=== PATIENT | male | born 1950 | race Hispanic/Latino ===

== ENCOUNTER 2020-03-22 12:38 | Inpatient (IN) | payer MEDICARE, OTHER ==
[~2020-03-22 12:38] MED LIST: Dexamethasone 20 MG/5 ML VIAL ONE; EPHEDRINE 25 MG/5 ML SYRINGE ONE; Glycopyrrolate 0.2 MG/ML 5 ML SYRINGE ONE; Lidocaine 1% PF 5 ML VIAL ONE; Ondansetron PF 4 MG/2 ML Vial ONE; PHENYLEPHRINE-NS 100 MCG/ML 10 ML SYRINGE ONE; PROPOFOL 200 MG/20 ML VIAL ONE; Rocuronium Bromide 10 MG/ML (10ML VIAL) ONE; Succinylcholine Chloride 20 MG/ML 10 ml SYRINGE FS ONE; diphenhydrAMINE 50 MG/ML VIAL ONE
--- NOTE | 2020-03-22 13:16 | RAD ---
XR Chest 1 View Portable HISTORY: Preop evaluation. Intracranial hemorrhage COMPARISON: None FINDINGS: The heart size is normal. The lungs are well expanded without focal areas of consolidation, pneumothorax or pleural effusions. IMPRESSION: No radiographic evidence of acute cardiopulmonary process.
[2020-03-22 13:29] LABS: #Eosinphils 0.1 thou/uL (0.0-0.7); #Lymphocytes 1.3 thou/uL (1.20-3.40); #Monocytes 0.6 thou/uL (0.11-0.59); #Neutrophils 3.7 thou/uL (1.40-6.50); %Basophils 0.3 % (0.0-1.0); %Eosinophils 1.2 % (0.0-10.0); %Monocytes 10.5 % (0.0-10.0); Hemoglobin 14.7 g/dL (14.0-18.0); Mean Corpuscular Hemoglobin 33.8 pg (27.0-31.0); Mean Corpuscular Volume 99.5 fL (78.0-98.0); Mean Platelet Volume 6.4 fL (7.4-10.4); Platelet Count 280 thou/uL (130-400); RBC Distribution Width 13.1 % (11.5-14.5); Red Blood Cell (RBC) Count 4.35 mill/uL (4.70-6.10); White Blood Cell (WBC) Count 5.7 thou/uL (4.8-10.8)
[2020-03-22 13:35] LABS: PTT 32.8 sec (22.9-36.1)
[2020-03-22 13:49] LABS: ALT (SGPT) 19 U/L (8-55); AST (SGOT) 22 U/L (5-34); Alkaline Phosphatase 81 U/L (40-110); Anion Gap 13 mmol/L (10-20); BUN (Urea Nitrogen) 12 mg/dL (8.4-25.7); Bilirubin, Total 0.7 mg/dL (0.2-1.2); Calc. Creatinine Clearance 0 mL/min (70-130); Calcium 9.1 mg/dL (7.8-10.44); Carbon Dioxide 24 mmol/L (23-31); Chloride 99 mmol/L (98-107); Estimated GFR-MDRD Greater than 90; Globulin 2.9 g/dL (2.4-3.5); Glucose 81 mg/dL (83-110); Potassium 4.2 mmol/L (3.5-5.1); Protein, Total 6.9 g/dL (5.8-8.1); Sodium 132 mmol/L (136-145)
[2020-03-22] MEDS ORDERED: Ondansetron PF 4 MG/2 ML Vial IVP PRN (14:24)
[2020-03-22] MEDS ORDERED: Labetalol HCl 100 MG/20 ML VIAL SLOW IVP PRN (14:24)
[2020-03-22] MEDS ORDERED: Lidocaine 1% w/Epinephrine 1:100K 20 ML VIAL ONE (14:28)
[2020-03-22] MEDS ORDERED: Docusate 100 MG CAP PO PRN (14:28)
[2020-03-22] MEDS ORDERED: CEFAZOLIN 2 GM in Premix Bag 1 BAG IVPB SCH (14:30)
[2020-03-22] MEDS ORDERED: Fentanyl 250 MCG/5 ML VIAL ONE (14:32)
[2020-03-22] MEDS ORDERED: Acetaminophen 500 MG TAB PO PRN (14:33)
[2020-03-22] MEDS ORDERED: Fentanyl 100 MCG/2 ML VIAL SLOW IVP PRN ×2 (14:34→16:41)
[2020-03-22] MEDS ORDERED: Bacitracin Zinc Ointment 30 gm TUBE ONE (14:34)
[2020-03-22] MEDS ORDERED: Thrombin 5000 UNITS/5 ML VIAL ONE (14:34)
[2020-03-22] MEDS ORDERED: Sodium Chloride 0.9% 10 ML ONE (14:35)
[2020-03-22] MEDS ORDERED: Lidocaine 0.5%/Epinephrine 1:200,000 50 ml Vial ONE (14:36)
[2020-03-22] MEDS ORDERED: Sodium Chloride 0.9% 0 ML ONE (15:56)
[2020-03-22] MEDS ORDERED: SUGAMMADEX SODIUM 200 MG/2 ML VIAL ONE (16:06)
[2020-03-22] MEDS ORDERED: Ondansetron HCl/PF 4 MG/2 ML Vial IVP PRN (16:51)
--- NOTE | 2020-03-22 16:55 | PRG ---
DATE OF SERVICE: 03/22/2020 I personally examined the patient, reviewed imaging and documentation, and agreed with the notes of Jonathon Gamez PA-C. Briefly, Tereza Vicente is a 70-year-old gentleman, who has had some progressively worsening weakness on the left side of his body and was eventually brought to the emergency department today, where CT examination of the brain showed a subdural hematoma that looked mostly chronic. There were small acute portions anteriorly. The mass effect was significant as was as the shift. He was transferred from [facility] to [place] for definitive treatment. In the emergency department, he was able to speak in Serbian, and conducted his examination in that language. He did not speak Cymro. There was a left hemiparesis. Consent was obtained by Jonathon Gamez PA-C, through an interpretation program and we took the patient to the operating room from the emergency department. (15 min, F2F and coordinating care, OR room, etc) Job ID: [id number] MTDD
[2020-03-22] MEDS ORDERED: hydrALAZINE 20 MG/ML VIAL ONE (17:04)
[2020-03-22 17:44] VITALS: BMI 22.2
[2020-03-22] MEDS: Sodium Chloride 0.9% 1,000 ML IV SCH (20:08)
[2020-03-22] MEDS: CEFAZOLIN 2 GM in Premix Bag 1 BAG IVPB SCH (21:38)
[2020-03-22] MEDS: traMADol HCl 50 MG TAB PO PRN (21:53)
[2020-03-22] MEDS: hydrALAZINE 20 MG/ML VIAL SLOW IVP PRN (23:36)
--- NOTE | 2020-03-22 23:57 | OP ---
DATE OF PROCEDURE: 03/22/2020 BOTTLE WASHER: Jonathon Gamez PA-C PREOPERATIVE INDICATION: Prevent further neurological deterioration. PREOPERATIVE DIAGNOSES: Mostly chronic right-sided subdural hematoma with significant mass effect and midline shift and left hemiparesis. POSTOPERATIVE DIAGNOSES: Mostly chronic right-sided subdural hematoma with significant mass effect and midline shift and left hemiparesis. PROCEDURES PERFORMED: Mateusz hole evacuation of subdural hematoma and placement of subdural drain. PREOPERATIVE MEDICATIONS: Ancef 2 g IV. DRAIN NUMBER: One. DRAIN TYPE: 10-Romanian red rubber catheter in the subdural space. DESCRIPTION OF PROCEDURE: The patient was brought to the operating room. General endotracheal anesthesia was induced. The right shoulder was bumped and the head was placed in a donut-shaped headrest. Hair was removed from the right side of the scalp. We planned two mateusz holes, one little bit more lateral than normal in the frontal region and one in the parietal bone posteriorly, both of these off the midline. Under our planned incisions, we infused local anesthetic. The scalp was sterilely prepped and draped. We opened our two incisions with a 10-blade knife and controlled bleeding with bipolar cautery. We mobilized the periosteum and placed mastoid retractors. We used a high-speed drill and a perforating bit. We placed mateusz holes in the parietal and frontal bone. We waxed the edges of the mateusz holes. We coagulated the dura. We incised the dura starting posteriorly in a cruciate fashion and then anteriorly. Chronic subdural hematoma was evacuated under significant pressure. We irrigated until the irrigant ran clear. We brought a red rubber catheter into the field. With extra side holes cut into the catheter, we placed it in the subdural space. We tunneled it inferiorly through a separate stab incision and connected the distal end to a lumbar drain bag. We filled the subdural space as best we could with irrigation. We placed mateusz hole covers over the mateusz holes because the patient had very little hair and these would be obvious. We closed the scalp incisions in anatomical layers. We applied sterile dressings. This was a clean case, no contamination. Job ID: [id number]
--- NOTE | 2020-03-23 01:21 | CON ---
DATE OF CONSULTATION: 03/22/2020 CHIEF COMPLAINT: Left-sided weakness. HISTORY OF PRESENT ILLNESS: Mr. Yamileth Vicente is a 70-year-old gentleman, with a history of BPH. States that he fell out of a tree about one month ago running from a bull. He fell from about 4 to 5 feet, hitting his head. Recently today, he has some left-sided weakness, so he went to [facility] in [place]. Brain CT revealed a right 3 cm subdural hematoma with a 9 mm midline shift. He was then transferred to [facility] ED in [place] for further evaluation and treatment due to neurosurgery coverage. He states he drinks anywhere from 3 to 5 beers daily and denies any blood thinners. He denies any confusion, agitation, inappropriate behavior, headache, vision changes, or loss of consciousness. Physical exam revealed a 4/5 left upper and lower extremity weakness. REVIEW OF SYSTEMS: CONSTITUTIONAL: Denies fever or chills. ENT: Denies change in vision or hearing. CARDIAC: Denies chest pain, shortness of breath, or diaphoresis. PULMONARY: Denies shortness of breath, cough, or hemoptysis. GI: Denies abdominal pain, nausea, vomiting, diarrhea, change in stool formation or consistency. : Denies trouble with urination, frequency of urination, or bloody urine. SKIN: Denies skin rash, bruising, bleeding, or skin masses. MUSCULOSKELETAL: As per history of present illness. NEUROLOGIC: As per history of present illness. PSYCHOLOGIC: As per history of present illness. MEDICAL HISTORY: BPH. SOCIAL HISTORY: Drinks 3 to 5 alcohol drinks a day. Denies illicit drugs. Denies nicotine use. ALLERGIES: NO KNOWN DRUG ALLERGIES. CURRENT MEDICATION: Denies medications. FAMILY HISTORY: Father diagnosed with cancer. Mother diagnosed with embolism. SURGICAL HISTORY: Denies surgical history. HOSPITALIZATION: Denies hospitalizations. PHYSICAL EXAMINATION: VITAL SIGNS: 138/84, pulse 62, respirations 18, and temperature 98.6. HEENT: Pupils are equal. Extraocular movements are intact. NECK: Soft, supple. No masses are noted. Range of motion is intact and nonpainful. NEUROLOGICAL: Awake, alert, and oriented x3. Memory, attention, and fund of knowledge normal. Cranial nerves are grossly intact. GCS: Obeys commands, 6; oriented, 5; spontaneous eye opening, 4; total 15. Gait, focal weakness, abnormal gait. Motor: Deficits include 4/5 strength in left upper extremity and the left lower extremity. LABORATORY DATA: WBC 5.7 and platelets are 13.1. PT 13, INR 1.0, and PTT 32.8. Sodium 132. IMAGING: Brain CT shows a right 3 cm subdural hematoma with 9 mm midline shift. PLAN: Right mateusz holes to evacuate chronic subdural hematoma causing focal weakness and abnormal gait. INFORMED CONSENT: We discussed the indications, risks, benefits, alternatives, and expected results from surgery. The risks discussed included, but were not limited to, infection, bleeding, CSF leak, brain damage, significant loss of neurological function, seizure, stroke, dependency for normal care, cardiopulmonary complications of anesthesia or . Long-term complications were discussed. He understands the risks and is willing to proceed. Job ID: [id number] [facility]
[2020-03-23] MEDS: CEFAZOLIN 2 GM in Premix Bag 1 BAG IVPB SCH ×3 (05:46→21:03)
[2020-03-23] MEDS: Pantoprazole 40 MG VIAL IVP SCH (07:37)
--- NOTE | 2020-03-23 07:56 | PRG ---
DATE OF SERVICE: 03/23/2020 I stopped by the room of Mr. Yamileth Vicente this morning in the ICU. He is one day out from mateusz hole evacuation of subdural hematoma. Nursing reports good neurological function. There is still question as to the positivity or negativity of the COVID testing. Therefore, he is on strict isolation precautions currently. The maximum temperature recorded was 97.8 degrees Fahrenheit yesterday. The blood pressures have been between 100 to 120s. Neurological function assessed from outside the room. This morning CT scan shows marked improvement of the fluid in the subdural space. All the fluid there now is a combination of CSF and irrigation. There is a small bubble of air anteriorly. The brain is slowly re-expanding. We will allow Mr. Yamileth Vicente to sit up, stand up, and move around with assistance today. I will be helpful to know the true status of his COVID test so that we can arrange appropriate care in isolation. We will plan on removing the drain tomorrow. When he is in bed, it will be beneficial for him to be in the right lateral decubitus position to allow gravity to pull his brain toward the floor and encourage more subdural fluid to leave the cranial cavity through the drain into the collection bag. Job ID: [id number]
--- NOTE | 2020-03-23 09:07 | CT ---
PRELIMINARY REPORT/[facility]/EMERGENCY AFTER HOURS PROCEDURE: Receipt of this report by the clinical staff was confirmed with Jacqui Black RN by Evie Caraballo on Mar 23, 2020 03:55:00 CDT. Addendum electronically signed by Annabel Caraballo on March 23, 2020 3:54:45 AM CDT EXAM: CT BRAIN WO CON HISTORY: F/U [facility]; S/P MATEUSZ HOLE Prior CT brain done at another facility, exam sent, pt ID for prior exam [id number] COMPARISON: None FINDINGS: Dumont hole at the right frontal calvarium. There is a second bur hole with ventriculostomy catheter at the right superior parietal calvarium. This ventriculostomy catheter courses anteriorly and terminates overlying the anterior right frontal lobe. There is a primarily hypodense subdural fl uid collection, with layering hyperdensity compatible with acute blood products. There is additional blood products at the location of the overlying right frontal calvarial mateusz hole. Additionally, th ere is anti-dependently layering pneumocephalus. Maximum transverse dimension of this subdural hemat pal is 1.3 cm. There is commensurate right to left midline shift, measuring 9 mm. There is ipsilate ral right-sided sulcal effacement at the vertex. No evidence for herniation. No intraparenchymal hyp odensity to suggest acute ischemia or cerebral edema. The contents of the orbits are symmetric across the midline. The paranasal sinuses and mastoids are clear. Postsurgical changes of the scalp overlying the right cranium. IMPRESSION: 1. Right frontoparietal subdural hematoma, with commensurate mass-effect and midline shift, as descr ibed above. 2. 2 right-sided mateusz holes, with a single ventriculostomy catheter terminating within the anterior aspect of the above-described subdural hematoma. ELECTRONICALLY SIGNED BY: Jenny Veloz MD Mar 23, 2020 3:15:39 AM CDT FINAL REPORT I agree with the preliminary report given by Dr. Nigel Veloz of [facility]. POS: OFF
[2020-03-23] MEDS: Sodium Chloride 0.9% 1,000 ML IV SCH ×2 (10:11→22:57)
--- NOTE | 2020-03-23 10:27 | CON ---
DATE OF CONSULTATION: 03/23/2020 REASON FOR CONSULTATION: The patient is in ICU. CONSULTING PHYSICIAN: [facility]. HISTORY OF PRESENT ILLNESS: This is a 70-year-old male, who has been hospitalized for left-sided weakness related to a subdural hematoma. This was evacuated by mateusz holes and he is now stable and has no complaints. PAST MEDICAL HISTORY: Prostatic hypertrophy. PAST SURGICAL HISTORY: Unremarkable. ALLERGIES: NONE. MEDICATIONS: None prior to admission. FAMILY MEDICAL HISTORY: Remarkable for cancer, pulmonary embolism. REVIEW OF SYSTEMS: 12-point review of systems is otherwise negative. PHYSICAL EXAMINATION: VITAL SIGNS: Temperature 98.1, pulse 77, blood pressure 131/65, O2 saturation 95%. HEENT: Unremarkable except for a bandage around his head. NECK: No JVD. CHEST: Clear. CARDIAC: S1 and S2. Regular. ABDOMEN: Soft. EXTREMITIES: No edema. NEUROLOGIC: Nonfocal. LABORATORY DATA: White blood cell count 5.7, hematocrit 43.3, and platelet count 280. Sodium 132, potassium 4.2, chloride 99, CO2 of 24, BUN is 12, creatinine 0.8, and glucose 81. ASSESSMENT: Status post subdural hematoma - now evacuated. PLAN: The patient is on appropriate care including Protonix for GI prophylaxis, SCDs for DVT prophylaxis, and otherwise is being monitored in ICU for his subdural hematoma. We will be glad to follow him with you while he is in the ICU, but right now I have nothing further to add as he looks well. Job ID: [id number]
[2020-03-23 11:39] LABS: SARS-CoV-2 MS2 Positive; SARS-CoV-2 N Gene Negative; SARS-CoV-2 S Gene Negative; SARS-CoV-2 by NAA Not Detected (NotDetected); SARS-CoV-2 orf1ab Negative
[2020-03-23] MEDS: traMADol HCl 50 MG TAB PO PRN ×2 (14:44→23:56)
[2020-03-24] MEDS: hydrALAZINE 20 MG/ML VIAL SLOW IVP PRN ×2 (01:35→05:37)
[2020-03-24] MEDS: CEFAZOLIN 2 GM in Premix Bag 1 BAG IVPB SCH ×2 (05:13→14:19)
--- NOTE | 2020-03-24 07:19 | PRG ---
DATE OF SERVICE: 03/24/2020 I saw Mr. Yamileth Vicente in his ICU room this morning. No events were reported overnight. His COVID test came back negative, finally a definitive result. Among the electronically recorded vital signs, I do not see any fevers at all. Blood pressures have been in between the 120s and 140s. On examination , Mr. Yamileth Vicente is awake. He tells me that his head does not hurt. He has some discomfort in the abdomen and he is tired of being in bed. He tells me he did get out of bed yesterday. He speaks in Iranian and his language function is good. There is no lateralizing motor or sensory deficits. The plan today is to get Mr. Yamileth Vicente's drain out. After the drain is out, he will stay flat for about an hour and then slowly get up. When he is sitting up, by lunchtime, he can move from ICU care to floor care. Once he is safe for activities of daily living, he can be discharged. Job ID: [id number] [facility]
[2020-03-24] MEDS: Pantoprazole 40 MG VIAL IVP SCH (08:07)
--- NOTE | 2020-03-24 08:54 | PRG ---
DATE OF SERVICE: 03/24/2020 SUBJECTIVE: The patient has done well overnight. I was anticipating he may be discharged later today. OBJECTIVE: VITAL SIGNS: Temperature 98.6, pulse 84, blood pressure 120/64, O2 saturation 93% on room air. HEENT: Unremarkable except for allyson over the right christian area. NECK: No adenopathy or JVD. LUNGS: Clear. CARDIAC: S1, S2. Regular. ABDOMEN: Soft. EXTREMITIES: No edema. LABORATORY DATA: No labs today. ASSESSMENT: Subdural hematoma, now status post evacuation. PLAN: Discharge seems appropriate per Neurosurgery. No further pulmonary recommendations. We will sign off. Job ID: [id number]
[2020-03-24] MEDS: traMADol HCl 50 MG TAB PO PRN (09:36)
[2020-03-24] MEDS: Sodium Chloride 0.9% 1,000 ML IV SCH (14:19)
[2020-03-24 19:45] VITALS: BP 134/77; TEMP 98.1
--- NOTE | 2020-03-25 07:56 | PQF ---
CLINICAL DOCUMENTATION CLARIFICATION FORM: Dear : Walter Cook Date / Time: 03/25/2020 9774 Please exercise your independent, professional judgment in responding to the clarification form. Clinical indicators are provided on the bottom of this form for your review Please check appropriate box(es): [ ] Cerebral edema / Vasogenic edema [ ] Compression of brain [ ] Other diagnosis [ ] Unable to determine Physician Signature: Date/Time: For continuity of documentation, please document condition throughout progress notes and discharge summary. Thank You. To be completed by CDI/Coding staff for physician review: Present Clinical Indicators - Signs / Symptoms / Labs Results and Location in Medical Record [X] BP 117/65, Pulse 82, Resp 17, Temp 97.6 Vital signs 03/22 [X] CT Brain Impression: Right fromtoparietal subdural hematoma, with commensurate mass-effect and midline shift Imaging Dr Fernandes 03/23 [X] GCS 15 Neurological Panel 03/22 [X] Chronic Right sided subdural hematoma with significant mass effect and midline shift and left hemiparesis Operative report 03/22 Dr Cook Present Risk Factors Results and Location in Medical Record [X] 70 year-old Male Operative report 03/22 Dr Cook [X] Chronic Right sided subdural hematoma Operative report 03/22 Dr Cook Present Treatments Results and Location in Medical Record [X] CT Brain 03/[address] Fernandes 03/23 [X] [place] hole Evacuation of subdural hematoma and placement of subdural brain Operative report 03/22 Dr Cook [X] Neuro Consult Consult Jonathon Mccullough 03/22 CDS/Skills Instructor Signature: Angelic Richardjose f Phone #: [phone] Date/Time: 03/25/2020 This is a permanent part of the Medical Record [facility]
--- NOTE | 2020-03-25 15:37 | DIS ---
DATE OF ADMISSION: 03/22/2020 DATE OF DISCHARGE: 03/24/2020 HOSPITAL COURSE: Mr. Yamileth Vicente is a 70-year-old gentleman, who fell out of a tree about a month ago and suffered a right subdural hematoma. In the ED, he presented with left-sided weakness. The patient was brought to the OR, where consent was obtained and a right mateusz hole evacuation of the subdural hematoma was done. Following the surgery, he was transitioned to the ICU. His pain has been well controlled with p.o. medications. He tolerated a regular diet. He was voiding appropriately. His drain was removed postop day [address] showed much improvement. He was then transferred to med/surg floor. On exam today, he is awake and alert, in no acute distress. He had free active range of motion of all extremities. No focal motor weakness. No reflex asymmetry. His incision is clean, dry, and intact. We will plan to discharge him home today. CONDITION ON DISCHARGE: The patient had no emergencies. Condition was stable for discharge. MEDICATIONS: Home going medications were reviewed. FOLLOWUP: Followup arrangements made by our area coordinator in the clinic and call to the patient. ACTIVITIES: Restrictions were reviewed in person. Wound care showers are acceptable. The patient should pat the incision dry, but not submerge under the surface of the body of water for 2 months. Job ID: [id number]
== END 2020-03-24 20:10 | disposition home or self-care (01) | DRG 26 ==
LOC: ERS 12:38 → SDC 15:07 → CCU 17:29 → SURG A 03-24 12:46
PROVIDERS: ADMIT Neurological Surgery; ATTEND Neurological Surgery
PROC: 00C43ZZ Extirpation of Matter from Intracranial Subdural Space, Percutaneous Approach (ICD-10-PCS; principal; 2020-03-22)
PROC: 009430Z Drainage of Intracranial Subdural Space with Drainage Device, Percutaneous Approach (ICD-10-PCS; 2020-03-22)
DX: I62.03 Nontraumatic chronic subdural hemorrhage (principal); G81.94 Hemiplegia, unspecified affecting left nondominant side; N40.0 Benign prostatic hyperplasia without lower urinary tract symptoms; R26.89 Other abnormalities of gait and mobility; R40.2362 Coma scale, best motor response, obeys commands, at arrival to emergency department; R40.2142 Coma scale, eyes open, spontaneous, at arrival to emergency department; R40.2252 Coma scale, best verbal response, oriented, at arrival to emergency department; Z20.828 Contact with and (suspected) exposure to other viral communicable diseases; Z79.899 Other long term (current) drug therapy
CPT/HCPCS: 36415; 36416; 70450; 71045; 83880; 87635; C1713; C9113; J0360; J0690; J1100; J1200; J1953; J2001; J2405; J2704; J3010; J3490; U0003